=== PATIENT | male | born 1925 | race Hispanic/Latino ===

== ENCOUNTER 2016-08-06 09:10 | Inpatient (IN) | payer OTHER, MEDICAID ==
[~2016-08-06] VITALS: Ht 167.6 cm; Wt 72.6 kg
[~2016-08-06 09:10] MED LIST: UNOBMED
--- NOTE | 2016-08-06 09:15 | Emergency Room Report ---
History of Present Illness General Chief Complaint: Syncope Source: EMS Present Illness HPI Patient brought in by EMS after of reported syncopal episode at home. Patient has a history of coronary artery disease with CABG, stenting as well as a history of prostate cancer. Patient was scheduled to go to a chemotherapy session today but according to EMS he had a fainting episode when getting up this morning. Family has not at the bedside to assist with his history. No reported significant trauma no reported history of seizure disorder. Patient was reported to have negative orthostatics and stable vitals by EMS. He does have a history of a pacemaker as well. Patient currently denies chest pain or head pain or injury or difficulties. There is some limitation due to language barrier, patient is Georgian-speaking primarily. Allergies: Coded Allergies: No Known Allergies (Unverified , 08/23/14) Patient History Limited by: language barrier - Georgian only Past Medical History: see triage record, old chart reviewed Social History: Denies: alcohol use, drug use, smoking Immunizations: UTD Reviewed Nursing Documentation: PMH: Agreed Nursing Documentation-PMH Hx Cardiac Problems: Yes - CABG X3 Hx Hypertension: Yes Hx Pacemaker: Yes Hx Diabetes: Yes Hx Cancer: Yes - Prostate Hx Cerebrovascular Accident: Yes - No deficit Review of Systems Constitutional: Denies: fever, malaise, weakness Cardiovascular: Reports: syncope, Denies: chest pain Genitourinary: Denies: dysuria, frequency Skin: Denies: change in color Psychiatric: Denies: anxiety All Other Systems: negative except mentioned in HPI Physical Exam Vital Signs Date Time Temp Pulse Resp B/P Pulse Ox O2 Delivery O2 Flow Rate FiO2 08/06/16 09:01 64 16 108/52 94 Room Air Sp02 EP Interpretation: reviewed, normal General Appearance: no apparent distress, alert, GCS 15, non-toxic, thin Head: atraumatic Eyes: bilateral eye normal inspection ENT: hearing grossly normal, normal voice, dry mucus membranes Neck: normal inspection, full range of motion, supple, no bony tend Respiratory: normal inspection, lungs clear, normal breath sounds, no respiratory distress, no retraction, no wheezing Cardiovascular #1: regular rate, rhythm, no edema, other - sternal scar,well healed Gastrointestinal: normal inspection, normal bowel sounds, non tender, soft, no guarding, no hernia Genitourinary: no CVA tenderness Musculoskeletal: normal inspection, back normal, normal range of motion Neurologic: normal inspection, alert, responsive, speech normal Psychiatric: normal inspection, judgement/insight normal, mood/affect normal Skin: normal inspection, normal color, no rash Medical Decision Making Diagnostic Impression: Primary Impression: Syncope Additional Impression: UTI (urinary tract infection) ER Course Patient was here for syncopal episode at home, full history is pending discussion with family when they arrive. At this time his vitals appear stable , EKG shows a well paced rhythm, and the patient appears to be in no distress or have suffered trauma. Will require blood work as well as orthostatics as well as prescribe U. fluids and monitoring. He may benefit from pacemaker interrogation as well as a CAT scan of the head to look for any sign of particular metastasis. We are not familiar with his full degree of prostate cancer, and he does have a risk of PE, causing collapse. At this time the patient being pacemaker difficult to determine true heart rate. Will likely require scan of the head. And likely admission for observation at this medicine fairly frail gentleman. Reviewed imaging studies, chest x-ray, CT as well as blood work, urinalysis. Evidence of mild UTI as well as possible early dehydration with worsening renal failure. IV fluids, antibiotics given in the ER. I spoke with Dr. Pitts, and he agrees that the patient likely would benefit from admission, observation with telemetry covering. CT of the head was reviewed without findings, the patient has a positive d-dimer in the setting of likely prostate cancer. A VQ scan was ordered and is currently pending, and was signed out to Dr. Pitts. Spoke with family and he understands plan of care. Laboratory Tests Test 08/06/16 09:50 08/06/16 10:30 White Blood Count 11.0 K/UL (4.8-10.8) H Red Blood Count 3.61 M/UL (4.70-6.10) L Hemoglobin 10.3 G/DL (14.2-18.0) L Hematocrit 30.2 % (42.0-52.0) L Mean Corpuscular Volume 84 FL (80-99) Mean Corpuscular Hemoglobin 28.5 PG (27.0-31.0) Mean Corpuscular Hemoglobin Concent 34.1 G/DL (32.0-36.0) Red Cell Distribution Width 14.8 % (11.6-14.8) Platelet Count 248 K/UL (150-450) Mean Platelet Volume 6.2 FL (6.5-10.1) L Neutrophils (%) (Auto) 81.0 % (45.0-75.0) H Lymphocytes (%) (Auto) 9.6 % (20.0-45.0) L Monocytes (%) (Auto) 5.5 % (1.0-10.0) Eosinophils (%) (Auto) 2.9 % (0.0-3.0) Basophils (%) (Auto) 1.0 % (0.0-2.0) Prothrombin Time 11.4 SEC (9.30-11.50) Prothromb Time International Ratio 1.1 (0.9-1.1) Activated Partial Thromboplast Time 26 SEC (23-33) D-Dimer 2334 ng/mL (<500) H Sodium Level 134 mEQ/L (135-145) L Potassium Level 4.8 mEQ/L (3.4-4.9) Chloride Level 96 mEQ/L (98-107) L Carbon Dioxide Level 22 mEQ/L (20-30) Anion Gap 16 (5-15) H Blood Urea Nitrogen 54 mg/dL (7-23) H Creatinine 2.7 mg/dL (0.7-1.2) H Estimat Glomerular Filtration Rate mL/min (>60) Glucose Level 193 mg/dL (74-106) H Calcium Level 8.8 mg/dL (8.6-10.2) Total Bilirubin 0.3 mg/dL (0.0-1.2) Aspartate Amino Transf (AST/SGOT) 13 U/L (5-40) Alanine Aminotransferase (ALT/SGPT) 12 U/L (3-41) Alkaline Phosphatase 122 U/L (40-129) Total Creatine Kinase 60 U/L (38-174) Creatine Kinase MB 2.0 ng/mL (< 6.7) Creatine Kinase MB Relative Index 3.3 Troponin I < 0.30 ng/mL (<=0.30) Pro-B-Type Natriuretic Peptide 877 pg/mL (0-450) H Total Protein 6.6 g/dL (6.6-8.7) Albumin 3.7 g/dL (3.5-5.2) Globulin 2.9 g/dL Albumin/Globulin Ratio 1.2 (1.0-2.7) Urine Color Yellow Urine Appearance Slightly cloudy Urine pH 5 (4.5-8.0) Urine Specific Tibbie 1.020 (1.005-1.035) Urine Protein 3+ (NEGATIVE) H Urine Glucose (UA) Negative (NEGATIVE) Urine Ketones Negative (NEGATIVE) Urine Occult Blood 5+ (NEGATIVE) H Urine Nitrite Negative (NEGATIVE) Urine Bilirubin Negative (NEGATIVE) Urine Urobilinogen Normal MG/DL (0.0-1.0) Urine Leukocyte Esterase 3+ (NEGATIVE) H Urine RBC 20-30 /HPF (0 - 0) H Urine WBC 15-20 /HPF (0 - 0) H Urine Squamous Epithelial Cells Occasional /LPF Urine Bacteria Few /HPF (NONE) Urine Yeast Few /HPF (NONE) H Lab Results Impression likely urinary tract infection EKG Diagnostic Results EKG Time: 09:14 EP Interpretation: paced rhythm Rhythm: NSR, other - paced ST Segments: no acute changes ASA given to the pt in ED: No Rhythm Strip Diag. Results Rhythm Strip Time: 09:34 EP Interpretation: yes Rate: 87 Rhythm: no PVC's, no ectopy, other - paced Chest X-Ray Diagnostic Results Time: 09:45 EP Interpretation: Yes Findings: no effusion, no pneumothorax, no acute cardiopulmonary disease, other - pacemaker,AICD in place Number of Views: 1 CT/MRI/US Diagnostic Results CT/MRI/US Diagnostic Results : Imaging Test Ordered: cT head without contrast, VQ scan Impression cT head, no evidence of acute intracranial pathology, BQ scan, pending Reevaluation Time: 12:53 Last Vital Signs Date Time Temp Pulse Resp B/P Pulse Ox O2 Delivery O2 Flow Rate FiO2 08/06/16 09:01 64 16 108/52 94 Room Air Status: improved Disposition: ADMITTED INPATIENT Admit Decision Time: 12:53 Condition: Serious Mark Carlson MD Aug 06, 2016 09:15
[2016-08-06 09:30] VITALS: BP 120/56
[2016-08-06 10:03] LABS: EOSINOPHILS % (AUTO) 2.9 % (0.0-3.0); LYMPHOCYTES % (AUTO) 9.6 % (20.0-45.0); MEAN CORPUSCULAR HEMOGLOBIN 28.5 PG (27.0-31.0); MEAN CORPUSCULAR HGB CONC 34.1 G/DL (32.0-36.0); MEAN CORPUSCULAR VOLUME 84 FL (80-99); MEAN PLATELET VOLUME 6.2 FL (6.5-10.1); MONOCYTES % (AUTO) 5.5 % (1.0-10.0); PLATELET COUNT 248 K/UL (150-450); RED BLOOD COUNT 3.61 M/UL (4.70-6.10); RED CELL DISTRIBUTION WIDTH 14.8 % (11.6-14.8)
[2016-08-06 10:14] LABS: INR 1.1 (0.9-1.1); PROTHROMBIN TIME 11.4 SEC (9.30-11.50)
[2016-08-06 10:18] LABS: ALANINE AMINOTRANSFERASE 12 U/L (3-41); ALBUMIN/GLOBULIN RATIO 1.2 (1.0-2.7); ANION GAP 16 (5-15); ASPARTATE AMINO TRANSFERASE 13 U/L (5-40); CALCIUM 8.8 mg/dL (8.6-10.2); CARBON DIOXIDE 22 mEQ/L (20-30); CHLORIDE 96 mEQ/L (98-107); CREATININE 2.7 mg/dL (0.7-1.2); HEMOLYSIS 3; POTASSIUM 4.8 mEQ/L (3.4-4.9); SODIUM 134 mEQ/L (135-145); TOTAL PROTEIN 6.6 g/dL (6.6-8.7)
[2016-08-06 10:19] LABS: TROPONIN I < 0.30 ng/mL (<=0.30)
[2016-08-06 10:30] VITALS: BP 118/50
--- NOTE | 2016-08-06 10:34 | Diagnostic Imaging Report ---
Indications: Abnormal chest sounds Technique: Portable AP chest Findings: Comparison: 08/23/2014 Cardiac silhouette remains normal in size. Pulmonary vasculature remains within normal limits. Lungs and pleura currently clear. Mild calcification of the thoracic aorta, sternal wires and cardiomediastinal surgical clips again noted. Left chest wall pacemaker again noted, lead tips in the regions of right atrium and ventricle, respectively.. IMPRESSION: No current evidence of acute disease Resolution of previous bilateral congestive changes Interval pacemaker placement
[2016-08-06 10:53] LABS: APPEARANCE,URINE SLIGHTLY CLOUDY; KETONES,URINE NEGATIVE (NEGATIVE); LEUKOCYTE ESTERASE ,URINE 3+ (NEGATIVE); NITRITE,URINE NEGATIVE (NEGATIVE); PH,URINE 5 (4.5-8.0); PROTEIN,URINE 3+ (NEGATIVE); UROBILINOGEN,URINE NORMAL MG/DL (0.0-1.0)
[2016-08-06 11:07] LABS: BACTERIA,URINE FEW /HPF; RBC,URINE 20-30 /HPF (0 - 0); SQUAMOUS EPITHELIAL CELL,UR OCCASIONAL /LPF (NONE/OCC); WBC,URINE 15-20 /HPF (0 - 0); YEAST,URINE FEW /HPF
[2016-08-06 11:30] VITALS: BP 137/47
[2016-08-06 12:30] VITALS: BP 135/67
[2016-08-06] MEDS ORDERED: cefTRIAXone 1 GM in NS 55 ML IVPB ONE (12:45)
[2016-08-06] MEDS ORDERED: GABAPENTIN100 MG ORAL (14:37)
[2016-08-06] MEDS ORDERED: CARVEDILOL12.5 MG ORAL (14:37)
[2016-08-06] MEDS ORDERED: ATORVASTATIN CA20 MG ORAL (14:37)
[2016-08-06] MEDS ORDERED: AMLODIPINE BESYL5 MG ORAL (14:37)
[2016-08-06] MEDS ORDERED: URECHOLINE50 MG ORAL (14:37)
[2016-08-06] MEDS ORDERED: ELIQUIS2.5 MG PO (14:37)
[2016-08-06] MEDS ORDERED: ISOSORBIDE DINIT5 MG ORAL (14:37)
[2016-08-06] MEDS ORDERED: LISINOPRIL20 MG ORAL (14:37)
--- NOTE | 2016-08-06 15:22 | Diagnostic Imaging Report ---
Indications: Syncope, elevated d-dimer level Technique: First, multiplanar imaging of pulmonary perfusion performed with intravenous and demonstration of 5.9 mCi 90 9M technetium-MAA. Next, multiplanar imaging of pulmonary ventilation performed with inhalation of 44 mCi 90 9M technetium-aerosolized DTPA. Findings: Comparison: Chest radiograph 08/06/2016. Ventilation images demonstrate homogeneous, symmetric distribution of radiotracer throughout both lungs. Small ovoid defect over anterior left upper lobe corresponds to the pacemaker... Perfusion images likewise demonstrate homogeneous, symmetric distribution of radiotracer throughout both lungs. Matched small ovoid defect over the anterior left upper lobe. No mismatched segmental or subsegmental perfusion defects are demonstrated. Impression: Low probability of pulmonary embolism
[2016-08-06 16:34] VITALS: BP 124/58
[2016-08-06 20:00] VITALS: BP 135/63
[2016-08-06] MEDS: Carvedilol 12.5mg tab ORAL SCH (22:40)
[2016-08-07 08:19] LABS: EOSINOPHILS % (AUTO) 3.7 % (0.0-3.0); MEAN CORPUSCULAR HGB CONC 32.9 G/DL (32.0-36.0); MEAN CORPUSCULAR VOLUME 85 FL (80-99); MEAN PLATELET VOLUME 7.1 FL (6.5-10.1); MONOCYTES % (AUTO) 7.8 % (1.0-10.0); NEUTROPHILS % (AUTO) 69.5 % (45.0-75.0); PLATELET COUNT 237 K/UL (150-450); RED BLOOD COUNT 3.51 M/UL (4.70-6.10); RED CELL DISTRIBUTION WIDTH 15.7 % (11.6-14.8); WHITE BLOOD COUNT 8.4 K/UL (4.8-10.8)
[2016-08-07] MEDS: Bethanechol 25mg Tab ORAL SCH ×3 (08:32→18:30)
[2016-08-07] MEDS: Carvedilol 12.5mg tab ORAL SCH ×2 (08:33→21:26)
[2016-08-07 08:39] LABS: ALANINE AMINOTRANSFERASE 10 U/L (3-41); ALBUMIN/GLOBULIN RATIO 1.1 (1.0-2.7); ANION GAP 15 (5-15); ASPARTATE AMINO TRANSFERASE 13 U/L (5-40); CALCIUM 8.6 mg/dL (8.6-10.2); CARBON DIOXIDE 24 mEQ/L (20-30); CHLORIDE 98 mEQ/L (98-107); CREATININE 2.1 mg/dL (0.7-1.2); HEMOLYSIS 3; POTASSIUM 4.5 mEQ/L (3.4-4.9); SODIUM 137 mEQ/L (135-145); TOTAL PROTEIN 6.5 g/dL (6.6-8.7)
[2016-08-07] MEDS ORDERED: Lisinopril 20mg tab ORAL SCH (09:00)
[2016-08-07] MEDS ORDERED: Eliquis 2.5mg tablet ORAL ONE (09:00)
[2016-08-07 09:09] VITALS: BP 137/72
[2016-08-07] MEDS: D5NS 1,000 ML IV SCH ×2 (10:27→22:04)
[2016-08-07 12:40] VITALS: BP 135/62
[2016-08-07] MEDS ORDERED: Influenza Virus Vaccine 0.5ml IM ONE (13:00)
[2016-08-07] MEDS ORDERED: Pneumococcal Vaccine 25mcg/0.5ml IM ONE (13:00)
[2016-08-07] MEDS ORDERED: PROTONIX20 MG ORAL (13:32)
[2016-08-07] MEDS ORDERED: JANUVIA25 MG ORAL (13:35)
[2016-08-07] MEDS ORDERED: FUROSEMIDE40 MG ORAL (13:35)
[2016-08-07] MEDS ORDERED: AFEDITAB CR30 MG ORAL (13:35)
[2016-08-07] MEDS ORDERED: TAMSULOSIN HCL0.4 MG ORAL (13:35)
[2016-08-07 16:00] VITALS: BP 142/72
--- NOTE | 2016-08-07 16:08 | History and Physical Report ---
DATE OF ADMISSION: 08/06/2016 HISTORY OF PRESENT ILLNESS: This is an elderly male, who came to the hospital after having had a syncopal episode. Apparently, he is on chemotherapy for prostrate cancer. This morning, he had a syncopal episode while getting up this morning. There was no seizure activity. No sternal precautions. He did not have a fall. The patient has a permanent pacemaker. He also has a history of previous CABG. Overnight, he has been hydrated. This morning, he is feeling well. He has a chronic Fonseca in place. PAST MEDICAL HISTORY: Prostate CA, permanent pacemaker, history of CABG, diabetes mellitus, and previous CVA. The patient denies any headaches, hematemesis, melena, hematochezia, night sweats, or weight loss. MEDICATIONS: Include Norvasc, Eliquis, Urecholine, Neurontin, lisinopril, Lipitor, and Coreg. He has also been started on antibiotics. ALLERGIES: None reported. PHYSICAL EXAMINATION: GENERAL: Reveals an 89-year-old male. VITAL SIGNS: Blood pressure is 130/70, heart rate 64, respirations are 20, he is afebrile, and O2 saturation 98% on room air. HEENT: Unremarkable. CHEST: Shows clear breath sounds bilaterally. ABDOMEN: Soft. GENITOURINARY: Fonseca catheter in place. EXTREMITIES: There is no edema. LABORATORY AND DIAGNOSTIC DATA: Lab testing shows hemoglobin 9.8. CBC is otherwise normal. Chemistry is notable for creatinine of 2.1, which improved from 2.7 yesterday. ProBNP is 877. Coags are negative. D-dimer is 2334. Urinalysis shows 15-20 WBC and 20-30 RBC. His imaging studies obtained yesterday include a V/Q scan, which showed low probability for pulmonary embolism. There were no mismatched defects. X-ray of the chest was negative as well. His EKG showed paced rhythm. IMPRESSION: 1. Syncopal episode. 2. Prostrate cancer. 3. Coronary artery bypass graft. 4. Hypertension. 5. Dehydration. 6. Possible urinary tract infection. DISCUSSION: We will start empiric antibiotics. The patient will receive IV hydration as well. Suspect element of dehydration may be responsible for his syncope given the improvement noted in BUN and creatinine after hydration. We will follow carefully. Anticipate discharge home in 24 hours. Mehul Siegel M.D. DR: Sue JOB#: [id number] CC:
[2016-08-07] MEDS ORDERED: Eliquis 2.5mg tablet ORAL SCH (18:00)
[2016-08-07 20:00] VITALS: BP 147/83
[2016-08-08] VITALS: BP 148/76
[2016-08-08 04:00] VITALS: BP 151/77
--- NOTE | 2016-08-08 06:46 | Pulmonology Progress Note ---
Assessment/Plan Assessment/Plan IMPRESSION: 1. Syncopal episode. 2. Prostrate cancer. 3. Coronary artery bypass graft. 4. Hypertension. 5. Dehydration. 6. Possible urinary tract infection. DISCUSSION: urine CS negative; will dc abx DC IV hydration as well. Anticipate discharge home today Home health Subjective Interval Events: Feels better; ants olmstead out. Normal vitals and improving creatinine Constitutional: Reports: no symptoms HEENT: Repors: no symptoms Respiratory: Reports: no symptoms Cardiovascular: Reports: no symptoms Gastrointestinal/Abdominal: Reports: no symptoms Genitourinary: Reports: no symptoms Allergies: Coded Allergies: No Known Allergies (Unverified , 08/23/14) Objective Last 24 Hour Vital Signs Date Time Temp Pulse Resp B/P Pulse Ox O2 Delivery O2 Flow Rate FiO2 08/08/16 04:00 64 08/08/16 04:00 97.0 63 20 151/77 98 Room Air 08/08/16 00:00 97.0 60 20 148/76 99 Room Air 08/08/16 00:00 63 08/07/16 21:26 64 147/83 08/07/16 20:00 60 08/07/16 16:00 61 08/07/16 16:00 97.2 60 19 142/72 98 Room Air 08/07/16 12:40 97.0 66 18 135/62 98 Room Air 08/07/16 12:00 62 08/07/16 09:09 97.0 68 20 137/72 98 Room Air 08/07/16 08:33 60 135/63 08/07/16 08:32 135/63 08/07/16 08:00 78 Intake and Output 08/07/16 08/08/16 19:00 07:00 Intake Total 840 ml 650 ml Output Total 1900 ml Balance 840 ml -1250 ml Intake Oral 240 ml IV Total 600 ml 650 ml Output Urine Total 1900 ml # Voids 1 General Appearance: WD/WN HEENT: normocephalic Respiratory/Chest: chest wall non-tender Cardiovascular: normal peripheral pulses Abdomen: normal bowel sounds Microbiology Date/Time Source Procedure Growth Status 08/06/16 10:30 Urine,Clean Catch Urine Culture - Preliminary Resulted Laboratory Tests 08/07/16 06:55: White Blood Count 8.4, Red Blood Count 3.51L, Hemoglobin 9.8L, Hematocrit 29.8L , Mean Corpuscular Volume 85, Mean Corpuscular Hemoglobin 28.0, Mean Corpuscular Hemoglobin Concent 32.9, Red Cell Distribution Width 15.7H, Platelet Count 237, Mean Platelet Volume 7.1, Neutrophils (%) (Auto) 69.5, Lymphocytes (%) (Auto) 18.0L, Monocytes (%) (Auto) 7.8, Eosinophils (%) (Auto) 3.7H, Basophils (%) (Auto) 1.0, Sodium Level 137, Potassium Level 4.5, Chloride Level 98, Carbon Dioxide Level 24, Anion Gap 15, Blood Urea Nitrogen 43H, Creatinine 2.1H, Estimat Glomerular Filtration Rate , Glucose Level 112H, Calcium Level 8.6, Total Bilirubin 0.3, Aspartate Amino Transf (AST/SGOT) 13, Alanine Aminotransferase (ALT/SGPT) 10, Alkaline Phosphatase 113, Total Protein 6.5L, Albumin 3.5, Globulin 3.0, Albumin/Globulin Ratio 1.1 Current Medications Medications (Trade) Dose Ordered Sig/Manolo Route PRN Reason Start Time Stop Time Status Last Admin Dose Admin Amlodipine Besylate (Norvasc) 5 mg DAILY ORAL 08/07/16 09:00 09/06/16 08:59 08/07/16 08:33 Apixaban (Eliquis) 2.5 mg BID ORAL 08/07/16 18:00 09/06/16 17:59 08/07/16 18:30 Atorvastatin Calcium (Lipitor) 10 mg BEDTIME ORAL 08/06/16 21:00 09/05/16 20:59 08/07/16 21:26 Bethanechol Chloride (Urecholine) 50 mg THREE TIMES A DAY ORAL 08/07/16 09:00 09/06/16 08:59 08/07/16 18:30 Carvedilol (Coreg) 12.5 mg EVERY 12 HOURS ORAL 08/06/16 21:00 09/05/16 20:59 08/07/16 21:26 Dextrose/Sodium Chloride 1,000 ml @ 75 mls/hr [id number] IV 08/07/16 09:30 09/06/16 09:29 08/07/16 22:04 Gabapentin (Neurontin) 100 mg THREE TIMES A DAY ORAL 08/07/16 09:00 09/06/16 08:59 08/07/16 18:30 Levofloxacin (Levaquin) 50 ml @ 50 mls/hr Q24H IVPB 08/07/16 23:00 08/14/16 22:59 08/07/16 22:03 Lisinopril 20 mg 20 mg DAILY ORAL 08/07/16 09:00 09/06/16 08:59 08/07/16 08:32 Mehul Siegel MD Aug 08, 2016 06:46
[2016-08-08 07:46] LABS: BASOPHILS % (AUTO) 1.4 % (0.0-2.0); EOSINOPHILS % (AUTO) 5.7 % (0.0-3.0); LYMPHOCYTES % (AUTO) 18.9 % (20.0-45.0); MEAN CORPUSCULAR HEMOGLOBIN 27.6 PG (27.0-31.0); MEAN CORPUSCULAR HGB CONC 32.2 G/DL (32.0-36.0); MEAN CORPUSCULAR VOLUME 86 FL (80-99); MEAN PLATELET VOLUME 7.2 FL (6.5-10.1); MONOCYTES % (AUTO) 9.1 % (1.0-10.0); NEUTROPHILS % (AUTO) 64.9 % (45.0-75.0); PLATELET COUNT 226 K/UL (150-450); RED BLOOD COUNT 3.88 M/UL (4.70-6.10); RED CELL DISTRIBUTION WIDTH 15.6 % (11.6-14.8); WHITE BLOOD COUNT 7.4 K/UL (4.8-10.8)
[2016-08-08 07:51] LABS: ANION GAP 18 (5-15); CARBON DIOXIDE 21 mEQ/L (20-30); CHLORIDE 102 mEQ/L (98-107); CREATININE 1.6 mg/dL (0.7-1.2); HEMOLYSIS 11; POTASSIUM 4.8 mEQ/L (3.4-4.9); SODIUM 141 mEQ/L (135-145)
[2016-08-08 08:00] VITALS: BP 144/69
[2016-08-08] MEDS ORDERED: D5NS 1000ml IV ONE (09:16)
[2016-08-08] MEDS ORDERED: Tubing IV Secondary IV ONE (09:16)
--- NOTE | 2016-08-08 19:07 | Nephrology Progress Note ---
Assessment/Plan Problem List: (1) EAN (acute kidney injury) (2) Prostate CA (3) Severe sepsis (4) UTI (urinary tract infection) Plan agree with current IVF. monitor UOP. Monitor labs closely. will follow. thanks. Subjective Subjective late entry for 08/07/16 - 89 y/o m with prostate ca undergoing chemotherapy admitted with syncope. Patient also noted to be in renal failure so neph consulted. Objective Objective Last 24 Hour Vital Signs Date Time Temp Pulse Resp B/P Pulse Ox O2 Delivery O2 Flow Rate FiO2 08/08/16 08:00 97.8 60 20 144/69 100 Room Air 08/08/16 04:00 64 08/08/16 04:00 97.0 63 20 151/77 98 Room Air 08/08/16 00:00 97.0 60 20 148/76 99 Room Air 08/08/16 00:00 63 08/07/16 21:26 64 147/83 08/07/16 20:00 60 Intake and Output 08/07/16 08/08/16 19:00 07:00 Intake Total 840 ml 725 ml Output Total 2000 ml Balance 840 ml -1275 ml Intake Oral 240 ml IV Total 600 ml 725 ml Output Urine Total 2000 ml # Voids 1 Laboratory Tests 08/08/16 05:15: White Blood Count 7.4, Red Blood Count 3.88L, Hemoglobin 10.7L, Hematocrit 33.2L , Mean Corpuscular Volume 86, Mean Corpuscular Hemoglobin 27.6, Mean Corpuscular Hemoglobin Concent 32.2, Red Cell Distribution Width 15.6H, Platelet Count 226, Mean Platelet Volume 7.2, Neutrophils (%) (Auto) 64.9, Lymphocytes (%) (Auto) 18.9L, Monocytes (%) (Auto) 9.1, Eosinophils (%) (Auto) 5.7H, Basophils (%) (Auto) 1.4, Sodium Level 141, Potassium Level 4.8, Chloride Level 102, Carbon Dioxide Level 21, Anion Gap 18H, Blood Urea Nitrogen 31H, Creatinine 1.6H, Estimat Glomerular Filtration Rate , Glucose Level 167H, Calcium Level 9.0, Pro-B-Type Natriuretic Peptide 3327H Height (Feet): 5 Height (Inches): 6.00 Weight (Pounds): 160 General Appearance: no apparent distress Cardiovascular: normal rate, regular rhythm Respiratory/Chest: lungs clear Abdomen: non tender, soft Extremities: non-pitting Neurologic: alert TON CANO Aug 08, 2016 19:07
--- NOTE | 2016-08-12 02:29 | Discharge Summary 2 SIG ---
DATE OF ADMISSION: 08/06/2016 DATE OF DISCHARGE: 08/08/2016 REASON FOR HOSPITALIZATION: 89-year-old male presented to the emergency room after reported syncopal episode at home. The patient has underlying history of coronary artery disease with CABG as well as history of prostate cancer. No history of seizure. The patient did not report any trauma. His vital signs were stable while taking by paramedics and no evidence of orthostatic changes. The patient also with a history of pacemaker. At the time of arrival, he denied chest pain, headache, injury, or difficulty talking. In the emergency department, lab work revealed mild leukocytosis, WBC 11. Urinalysis with evidence of possible UTI. D-dimer elevated at 2334, evidence of acute renal failure with BUN of 54 and creatinine 2.7. In the emergency department, the patient started on IV fluids and empiric antibiotics. CT of the head was negative for any acute intracranial pathology. V/Q scan was done in lieu of elevated D-dimer and history of prostate cancer, which demonstrated low probability of pulmonary emboli. The patient was on the room air. Pulse oximetry on room air was stable. Chest x-ray revealed no acute cardiopulmonary disease. The patient transferred to the floor for further management. ADMITTING DIAGNOSES: 1. Syncopal episode. 2. Prostate cancer. 3. Elevated D-dimer. 4. History of coronary artery disease with coronary artery bypass graft 5. Acute tubular necrosis/acute kidney injury likely secondary to dehydration. 6. Mild dehydration. 7. Possible urinary tract infection. HOSPITAL STAY: The patient admitted to the floor. The patient started on IV fluids and empiric antibiotics. Urine culture grew Faith with colony count only 30 to 40,000,likely colonized. Antibiotics stopped. Renal parameters and electrolytes were closely monitored. Acute tubular necrosis likely secondary to dehydration. Dehydration also likely the cause of the syncope. With IV fluids, creatinine down to 1.6 from initial 2.7 and BUN down to 31 from initial 54. Leukocytosis resolved, afebrile. Blood pressure was managed with the current medication regimen. Aspirin continued. Hemoglobin and hematocrit stable ,at the baseline, no trend down. The patient was stable for discharge home with home health for close monitoring of cardiopulmonary status. DISCHARGE DIAGNOSES: 1. Syncopal episode. 2. Prostate cancer. 3. Elevated D-dimer. 4. History of coronary artery disease with coronary artery bypass graft. 5. Mild dehydration, resolved. 6. Acute tubular necrosis/acute kidney injury secondary to dehydration, improved, likely element of chronic as well. 7. Chronic renal insufficiency. 8. Anemia of chronic disease. DISCHARGE MEDICATIONS: See medication reconciliation list. DISCHARGE INSTRUCTIONS: Follow up with the primary medical doctor and home health for further management. Mehul Siegel M.D. I have been assigned to dictate discharge summary on this account and I was not involved in the patient's management. Erin Reed (Vanchtein) N.PNorma DR: Jarod JOB#: [id number] CC: QUINCY
--- NOTE | 2016-08-15 12:01 | Diagnostic Imaging Report ---
Indications: SYNCOPE Technique: Continuous helical CT imaging of the brain was performed with nonionic exposure control on a Siemens sensation [address] scanner. Axial and coronal images were reconstructed at 5 mm slice thickness and interval. CTDI volume(s): 70 mGy Total DLP: 1435 mGy-cm Findings: Comparison: None Confluent low attenuation is present in the bilateral periventricular white matter. Low attenuation fluid collections are present in the extra-axial spaces over the anterior aspects of both frontal lobes, maximum diameters 4 mm on the right, a millimeters in length. Ventricles, cisterns, and sulci are diffusely prominent. No evidence of mass or hemorrhage, mass effect, midline shift, hydrocephalus, or increased intracranial pressure. Bone window images are unremarkable. Visualized paranasal sinuses and mastoid air cells are clear. The lenses of both optic globes are absent or atrophic. Metallic densities reside in the surface of both globes. IMPRESSION: No evidence of acute intracranial pathology Bilateral cerebral periventricular white matter low attenuation, nonspecific, likely chronic microvascular ischemic in nature. Atrophy Bifrontal extra-axial fluid collections most likely represent prominent subarachnoid spaces in the setting of bifrontal atrophy. Superimposed small chronic subdural fluid collections not excludable.. Previous bilateral cataract surgery The CT scanner at [facility] is accredited by the [employer] and the scans are performed using protocols designed to limit radiation exposure to as low as reasonably achievable to attain images of sufficient resolution adequate for diagnostic evaluation.
--- NOTE | 2016-08-15 14:32 | Cardiology Report ---
APPROVED REPORT EKG Measurement Heart [id number] [id number] Abnormal ECG Electronic pacemaker. 100% paced rhythm.
== END 2016-08-08 09:17 | disposition home health service (06) | DRG 640 ==
LOC: EDBD 09:10 → EMR 09:18 → 2E 11:39 → EDBEDREQ 13:07 → 2E 08-07 05:41
DX: E86.0 Dehydration (principal); N17.0 Acute kidney failure with tubular necrosis; C61 Malignant neoplasm of prostate; N39.0 Urinary tract infection, site not specified; D63.8 Anemia in other chronic diseases classified elsewhere; D72.829 Elevated white blood cell count, unspecified; I25.10 Atherosclerotic heart disease of native coronary artery without angina pectoris; Z95.1 Presence of aortocoronary bypass graft; Z23 Encounter for immunization; Z95.0 Presence of cardiac pacemaker; Z86.73 Personal history of transient ischemic attack (TIA), and cerebral infarction without residual deficits
CPT/HCPCS: 36415; 70450; 71010; 78579; 78580; 80048; 80053; 81003; 82550; 82553; 82962; 83880; 84484; 85025; 85379; 85610; 85730; 87086; 90732; 93005; A9503; Q2036